=== PATIENT | female | born 1940 | race Caucasian/White ===

== ENCOUNTER 2019-10-31 14:24 | Outpatient (CLI) | payer OTHER, SELFPAY ==
--- NOTE | 2019-10-31 14:50 | XR_ITS ---
WS: [id number] SCREENING DEXA SCAN [place] CLINICAL INFORMATION: OSTEOPOROSIS INSPECIFIED, PATHALOGICAL FRACTURE PRESENCE COMPARISON: None. FINDINGS: Left forearm bone mineral density measures 0.826 g/cm2 with a T score of -0.6 and Z score of 2.0 Left femoral neck bone mineral density measures 0.775 g/cm2. This corresponds to a T score of -1.8 an d Z score of -0.2. Right femoral neck bone mineral density measures 0.752 g/cm2. This corresponds to a T score -2.0of an d Z score of -0.3. Mean femoral neck bone mineral density measures 0.764 g/cm2. This corresponds to a T score of -1.9 an d Z score of -0.3. XR/XR DEXA axial skeleton* [id number] IMPRESSION: Osteopenia Patient's FRAX calculated 10 year probability for major osteoporotic fracture i s 20.6 % and osteoporotic hip fracture is 5.2%.
== END 2019-10-31 14:25 | disposition home or self-care (01) ==
LOC: RADWPI 14:36
PROVIDERS: Family Provider Nurse Practitioner Family; Visit Provider Nurse Practitioner Family
DX: M81.0 Age-related osteoporosis without current pathological fracture (principal)
CPT/HCPCS: 77080

== ENCOUNTER 2020-03-19 14:13 | Outpatient (CLI) | payer MEDICARE, OTHER, SELFPAY ==
--- NOTE | 2020-03-19 14:22 | NM_ITS ---
WS: [id number] NM pul vent and perfus* [id number] REASON FOR EXAM: SHORTNESS OF BREATH/POSITIVE D DIMER TECHNICAL: 32.5 mCi technetium labeled DTPA aerosol fine there is 5.1 mCi of MAA technetium labeled FINDINGS: The ventilation scan shows inhomogenous ventilation and there is inhomogenous perfusion see n throughout the right and left lung aguilar consistent more with chronic obstructive pulmonary diseas e with low probability of pulmonary embolus. Review of the chest films is consistent with this diagnosis. NM/NM pul vent and perfus* [id number] IMPRESSION: Low probability of pulmonary embolus
== END 2020-03-19 14:14 | disposition home or self-care (01) ==
PROVIDERS: Family Provider Nurse Practitioner Family; Visit Provider Physician Assistant Medical
DX: R06.02 Shortness of breath (principal); R79.89 Other specified abnormal findings of blood chemistry
CPT/HCPCS: 78014; A9540; A9567